=== PATIENT | female | born 1940 ===

== ENCOUNTER 2023-08-26 10:58 | Outpatient (OUT) | payer MEDICARE, SELFPAY ==
--- NOTE | 2023-08-26 | XR_ITS ---
The [address] [address] Patient Name: JORDAN SOTO MRN: [id number] date: 1940 Sex: F Assigned Patient Location: [facility] Current Patient Location: Accession/Order Number: [id number] Exam Date: 08/26/2023 11:22 Report Date: 08/27/2023 06:20 At the request of: LUZ SANTO Procedure: XR foot RT min 3V PROCEDURE: XR foot RT min 3V, XR ankle RT min 3V HISTORY: RIGHT FOOT PAIN , right ankle pain COMPARISON: None. FINDINGS: BONES:Mild degenerative changes the midfoot and first metatarsophalangeal joint. Mild flattening of plantar arch. No fracture, dislocation, or bone lesion. Uniform spacing of the ankle joint. SOFT TISSUES:No visible soft tissue swelling. EFFUSION:None visible. OTHER: Negative. XR/XR foot RT min 3V IMPRESSION: 1. Mild degenerative changes. 2. No acute or suspicious bone abnormality. Electronically authenticated by: JERAMY SANDERS Date: 08/27/2023 06:20
--- NOTE | 2023-08-26 | XR_ITS ---
The [address] [address] Patient Name: JORDAN SOTO MRN: [id number] date: 1940 Sex: F Assigned Patient Location: [facility] Current Patient Location: Accession/Order Number: [id number] Exam Date: 08/26/2023 11:22 Report Date: 08/27/2023 06:20 At the request of: LUZ SANTO Procedure: XR ankle RT min 3V PROCEDURE: XR foot RT min 3V, XR ankle RT min 3V HISTORY: RIGHT FOOT PAIN , right ankle pain COMPARISON: None. FINDINGS: BONES:Mild degenerative changes the midfoot and first metatarsophalangeal joint. Mild flattening of plantar arch. No fracture, dislocation, or bone lesion. Uniform spacing of the ankle joint. SOFT TISSUES:No visible soft tissue swelling. EFFUSION:None visible. OTHER: Negative. XR/XR ankle RT min 3V IMPRESSION: 1. Mild degenerative changes. 2. No acute or suspicious bone abnormality. Electronically authenticated by: JERAMY SANDERS Date: 08/27/2023 06:20
== END 2023-08-26 10:59 | disposition home or self-care (01) ==
PROVIDERS: Visit Provider Physician Assistant
DX: M79.671 Pain in right foot (principal); M25.571 Pain in right ankle and joints of right foot
CPT/HCPCS: 73610; 73630